=== PATIENT | female | born 1965 | race Caucasian/White ===

== ENCOUNTER 2019-09-30 14:39 | Outpatient (CLI) | payer OTHER, SELFPAY ==
--- NOTE | ~2019-09-30 | DEXA_ITS ---
Bone Density Report Name: Rakel Louise Age: 53 Sex: Female Ethnicity: White Date of : 1965 Indication: postmenopausal; height loss; prior fracture; Referring Provider: PHYSICIAN NOT ON STAFF Study: Bone densitometry was performed. Exam Date: September 30, 2019 Accession number: [id number] Bone Density: Region BMD T-score Z-score Classification AP Spine (L1-L4) 0.956 -0.8 0.2 Normal Femoral Neck (Left) 0.641 -1.9 -0.9 Osteopenia Total Hip (Left) 0.916 -0.2 0.4 Normal Total Hip Bilateral Avg 0.949 0.1 0.6 Normal Femoral Neck (Right) 0.714 -1.2 -0.2 Osteopenia Total Hip (Right) 0.981 0.3 0.9 Normal World Health Organization criteria for BMD impression classify patients as: Normal (T-score at or above -1.0), Osteopenia (T-score between -1.0 and -2.5), or Osteoporosis (T-score at or below -2.5). 10-year Fracture Risk(1): Major Osteoporotic Fracture 11% Hip Fracture 1.2% Reported Risk Factors: [place] (), Neck BMD=0.641, BMI=36.8, previous fracture (1) FRAX(R) Version 3.08. Fracture probability calculated for an untreated patient. Fracture probability may be lower if the patient has received treatment. Clinical Information Provided by Patient: Has had a low trauma fracture Patient maximum height was 61 Menopause Age: 50 Does not regularly consume dairy products Drinks caffeinated beverages Onset of menses at age 12 Number of children 1 Impression: The patient has low bone mass, based on the Left Femoral Neck T-score. The patient has an estimated ten-year risk of hip fracture of 1.2% and an estimated ten-year risk of major fracture of 11%, based on the WHO FRAX algorithm. The patient has risk factors, including: previous fracture. Discussion: BONE DENSITY IS LOW AT ONE OR MORE SKELETAL SITES. This patient's lowest T-score is low at one or more skeletal sites. It meets the World Health Organization's (WHO) criteria for ?low bone mass? (T-score between -1.0 and -2.5). The patient's 10-year risk of fracture as calculated by FRAX is less than the threshold where pharmacological therapy is recommended by the National Osteoporosis Foundation (NOF). However, all treatment decisions require clinical judgment and consideration of individual patient factors, including patient preferences, comorbidities, previous drug use, risk factors not captured in the FRAX model (e.g., frailty, falls, vitamin D deficiency, increased bone turnover, interval significant decline in bone density) and possible under or overestimation of fracture risk by FRAX. The patient should follow a healthful lifestyle (good nutrition with adequate calcium and vitamin D, and appropriate weight-bearing exercise). Follow-Up: Consider repeating this study in 2 to 3 years to reassess this patient's status, or sooner if there is some new c
== END 2019-09-30 14:40 | disposition home or self-care (01) ==
DX: S52.592D Other fractures of lower end of left radius, subsequent encounter for closed fracture with routine healing (principal); N95.1 Menopausal and female climacteric states; M85.89 Other specified disorders of bone density and structure, multiple sites
CPT/HCPCS: 77080

== ENCOUNTER 2024-04-16 07:57 | Outpatient (CLI) | payer OTHER, SELFPAY ==
[2024-05-13 10:59] VITALS: BMI 41.5
--- NOTE | 2024-05-13 10:59 | P.SLEEP_ITS ---
Sleep Study Date of Study: 04/16/24 Ordering Provider: Jw Muhammad Interpreting Physician: Yeimi Haque DO Sleep Study Type: Split Polysomnogram Height: 1.55 m Weight: 99.79 kg Body Mass Index: 41.5 Neck Circumference (inches): 16 Sherrill: 7 Reason for Sleep Study Previously diagnosed FRANKIE and was on CPAP. Needs to re-qualify. Sleep History The patient is a 58-year-old female that had a sleep study ordered by her ENT for evaluation of sleep apnea. The patient denies awakening from sleep short of breath. She frequently awakens at night with heartburn, belching or cough. She constantly snores loudly enough that others complain. She frequently has trouble sleeping when she has a cold. She denies waking up gasping for air throughout the night. She constantly has breathing problems at night observed by herself or others. He rarely sweats excessively at night. She denies having heart palpitations or irregular heartbeats during the night. She frequently falls asleep during the day but never while driving. She denies sleep paralysis, cataplexy and hypnagogic / hypnopompic hallucinations. She denies having trouble at school or work due to sleepiness. She denies feeling afraid of going to sleep. She denies having nightmares. She denies remembering her dreams. She occasionally has thoughts racing through her mind. She occasionally feels sad or depressed. She occasionally has anxiety. She rarely has muscular tension. She rarely notices parts of her body jerk. She rarely kicks during the night. She denies having crawling and aching feelings in her legs. She rarely has leg pain during the night. She rarely grinds her teeth during sleep and never awakens with morning jaw pain. She is constantly bothered by pain during the day and frequently awakened by pain during the n ight. She frequently wakes up feeling stiff in the morning. She frequently wakes up with sore or achy muscles. She frequently wakes up with pain in the neck, spine or other joints. She goes to bed at 10:30 p.m. on weekdays and 11:30 p.m. on the weekends. It takes her 30 minutes to fall asleep. She wakes up once throughout the night. When she wakes up she will get an iced coffee. It takes her 1 hour to fall back asleep. She wakes up at 4:00 a.m. on both weekdays and weekends. She typically gets 6 hours of sleep per night. She will stay in bed for 30 minutes after waking up in the morning. She currently lives with an elderly friend. She denies consuming any caffeinated beverages within 2 hours of bedtime. She denies engaging in physical exercise before bedtime. She will read before falling asleep. She will take naps in afternoon but they are not refreshing. She consumes 2 caffeinated beverages during the day. She denies consuming alcoholic beverages. She denies recreational drug use. Smoking history is unknown. Sleep Procedure A full night polysomnogram using the [employer] multi-channel system recorded the standard physiologic parameters including EEG, EOG, submentalis EMG, anterior tibialis EMG, EKG, body position, nasal and oral airflow using nasal pressure sensor and thermistor.? Respiratory parameters of chest and abdominal movements were recorded with Respiratory Inductance Plethysmography belts. Oxygen saturation was recorded by pulse oximetry. Video monitoring was also performed. Sleep stages, periodic limb movements, and EEG arousals were scored in 30 second epochs according to the criteria of the AASM Scoring Manual. The Apnea-Hypopnea Index was calculated using CMS guidelines for definition of hypopnea with 4% O2 desaturations while scoring respiratory events. Sleep Architecture During the diagnostic portion of the study, the total recording time was 142.5 minutes. The total sleep time was 129.5 minutes. Sleep latency was 3.0 minutes.? REM sleep was not achieved during this portion of the study. Sleep Efficiency was 90.9%. The patient had 9 awakenings for an awakening index of 4.2. Wake after sleep onset time was 10.0 minutes. The patient spent 10.5 minutes, 8.1% of total sleep time in Stage N1. The patient spent 43.0 minutes, 33.2% in Stage N2. The patient spent 76.0 minutes, 58.7% in Stage N3. The patient spent 0.0 minutes, 0.0% in Stage REM sleep. At 12:54:03 AM the patient was placed on PAP treatment and was titrated at pressures ranging from 5 cm H20 up to 21/15 cm/H20. During the treatment portion of the study, the total recording time was 311.6 minutes.? The total sleep time was 294.5 minutes. Sleep latency was 0.5 minutes. REM latency was 148.0 minutes. Sleep Efficiency was 94.5%. Wake after Sleep Onset time was 17.0 minutes. The patient spent 27.0 minutes, 9.2% of total sleep time in Stage N1. The patient spent 178.0 minutes, 60.4% in Stage N2. The patient spent 44.5 minutes, 15.1% in Stage N3. The patient spent 45.0 minutes, 15.3% in Stage REM. Respiratory Analysis During the diagnostic portion of the study, the patient had 152 hypopneas, 43 obstructive apneas and 1 central apnea for an overall Apnea Hypopnea Index of 90.8 events per hour. The REM Apnea Hypopnea Index was 0. The NREM Apnea Hypopnea Index was 90.8. The patient had a Central Apnea Hypopnea Index of 0.5. There was no evidence of Kenny-Terrazas Respirations. During the treatment portion of the study, the patient had 41 hypopneas, 10 obstructive apneas and 2 central apneas for an overall Apnea Hypopnea Index of 10.8 events per hour. The REM Apnea Hypopnea Index was 0. The NREM Apnea Hypopnea Index was 12.7. The patient had a Central Apnea Hypopnea Index of 0.4. There was no evidence of Kenny-Terrazas Respirations. The patient was started on CPAP 5 cm H2O and titrated to CPAP 20 cm H2O prior to switching to BPAP 18/14 cm H2O. The patient was then titrated to BPAP 21/15 cm H2O prior to ending the study. the patient was able to fall asleep starting on CPAP 5 cm H2O. The patient was able to achieve REM sleep starting on CPAP 18 cm H2O. The patient was able to achieve a residual AHI less than 5 with both NREM and REM sleep in the supine position on CPAP 18 cm H2O. On CPAP 18 cm H2O, the patient spent 20 minutes in NREM and 45 minutes in REM with 3 hypopneas resulting in an AHI of 2.8. The patient had a sleep efficiency of 96.3% on this pressure setting. Arousals During the diagnostic portion of the study, there were a total of 77 arousals for an arousal index of 35.7.? There were 23 respiratory arousals for an index of 10.7. There were 0 periodic limb movement arousals for an index of 0.? There were 2 isolated limb movement arousals for an index of 0.9. There were 52 spontaneous arousals for an index of 24.1. During the treatment portion of the study, there were a total of 130 arousals for an index of 26.5.? There were 19 respiratory arousals for an index of 3.9. There were 3 periodic limb movement arousals for an index of 0.6.? There were 27 isolated limb movement arousals for an index of 5.5. There were 81 spontaneous arousals for an index of 16.5. Periodic Limb Movements During the diagnostic portion of the study, the patient had 3 isolated limb movements with an index of 1.4. The patient had 0 periodic limb movements with an index of 0. The patient had a total of 3 limb movements with a total limb movement index of 1.4. During the treatment portion of the study, the patient had 40 isolated limb movements with an index of 8.1. The patient had 52 periodic limb movements with an index of 10.6. The patient had a total of 92 limb movements with a total limb movement index of 18.7. Oximetry Data During the diagnostic portion of the study, the patient had an average oxygen saturation of 94.2% in wake with a minimum oxygen saturation of 88% and a maximum oxygen saturation of 98%. The patient had an average oxygen saturation of 92.4% in sleep with a minimum oxygen saturation of 81.0% and a maximum oxygen saturation of 97.0%. The patient had 240 oxygen desaturations resulting in an Oxygen Desaturation Index of 111.2. The patient spent 8.6 minutes, 6.0% of total sleep time with an oxygen saturation less than 88%. During the treatment portion of the study, the patient had an average oxygen saturation of 94.7% in wake with a minimum oxygen saturation of 88.0% and a maximum oxygen saturation of 99.0%. The patient had an average oxygen saturation of 95.1% in sleep with a minimum oxygen saturation of 87.0% and a maximum oxygen saturation of 99.0%. The patient had 77 oxygen desaturations resulting in an Oxygen Desaturation Index of 15.7. The patient spent 0.7 minutes, 0.2% of total sleep time with an oxygen saturation less than 88%. Snoring Profile Moderate to loud snoring was present on the baseline portion of the study. The snoring resolved once the patient was titrated to 18 cm H2O. Cardiac Profile The EKG lead showed normal sinus rhythm. No arrhythmias or PVCs were seen. During the diagnostic portion of the study, the average pulse rate was 84.1 bpm.? The minimum pulse rate was 74.0 bpm. The maximum pulse rate was 96.0 bpm. During the treatment portion of the study, the average pulse rate was 78.7 bpm.? The minimum pulse rate was 65.0 bpm. The maximum pulse rate was 95.0 bpm. EEG Profile No signs of seizure activity seen. Assessment and Plan Assessment and Plan (1) FRANKIE (obstructive sleep apnea): Code(s): G47.33 - Obstructive sleep apnea (adult) (pediatric) Status: Acute Assessment and Plan: In the baseline portion of the study, the patient had an overall AHI of 90.8 with desaturation down to 81%. This is consistent with severe sleep apnea. The patient was started on CPAP 5 cm H2O and titrated to BPAP 21/15 cm H2O. We were able to find a pressure setting that resolved her sleep apnea. I recommend that the patient be prescribed CPAP 18 cm H2O, size small Resmed AirTouch F20 FFM, CPAP filters/tubing and heated humidity. This should be used with all episodes of sleep.? Compliance should be reviewed within 31-90 days of starting therapy for usage greater than 4 hours per night greater than 70% of the nights. The patient should be asked about symptoms such as?excessive daytime sleepiness, quality of sleep, decreased nocturia, increased?mental functioning such as memory, mood, and concentration. Data The data obtained during this sleep study is adequate for interpretation. Certification This sleep study has been reviewed by a board certified sleep medicine physician.
== END 2024-04-17 06:57 | disposition home or self-care (01) ==
LOC: ANHCSM 07:58
PROVIDERS: PCP Family Medicine
DX: G47.33 Obstructive sleep apnea (adult) (pediatric) (principal)
CPT/HCPCS: 95811